=== PATIENT | female | born 1935 | race Caucasian/White ===

== ENCOUNTER → 2017-11-28 | Outpatient (CLI) | payer MEDICARE ==
[~2017-11-28] MED LIST: ACET-2743 PO; CARV25TA PO; FISH1CAP27 PO; GARL1000 PO; GLUC-56 PO; LEVO50 PO; LORA10CA PO; LOSA1TAB42 PO; NAPR220T57 PO; NIAC500C3 PO; PANT40TA25 PO
== END | disposition home or self-care (01) ==
LOC: RAH 13:27
PROVIDERS: ATTEND Neuromusculoskeletal Medicine & OMM
DX: S32.010A Wedge compression fracture of first lumbar vertebra, initial encounter for closed fracture (principal); M43.16 Spondylolisthesis, lumbar region; M47.894 Other spondylosis, thoracic region; M41.85 Other forms of scoliosis, thoracolumbar region; X58.XXXA Exposure to other specified factors, initial encounter; Y93.89 Activity, other specified; Y92.89 Other specified places as the place of occurrence of the external cause; Y99.8 Other external cause status
CPT/HCPCS: 72070; 72114

== ENCOUNTER → 2018-12-10 | Outpatient (CLI) | payer MEDICARE | END | disposition home or self-care (01) | LOC: RAH 10:56 | PROVIDERS: ATTEND Internal Medicine Critical Care Medicine | DX: Z04.3 Encounter for examination and observation following other accident (principal); M47.815 Spondylosis without myelopathy or radiculopathy, thoracolumbar region; M47.813 Spondylosis without myelopathy or radiculopathy, cervicothoracic region; J84.9 Interstitial pulmonary disease, unspecified; J98.11 Atelectasis | CPT/HCPCS: 71046; 72070; 72100 ==

== ENCOUNTER → 2019-04-05 | Outpatient (CLI) | payer MEDICARE ==
[~2019-04-05] MED LIST changes: +AMIL5TAB8 PO; +CETI10CA5 PO; +CHOL400T33 PO; +GABA-529 PO; -GARL1000 PO; -GLUC-56 PO; +HYDR12.530 PO; -LOSA1TAB42 PO; +LOSA50TA64 PO; +UBID1CAP56 PO
== END | disposition home or self-care (01) ==
LOC: RAH 10:17
PROVIDERS: ATTEND Urology
DX: N20.0 Calculus of kidney (principal); G95.29 Other cord compression; Z90.49 Acquired absence of other specified parts of digestive tract
CPT/HCPCS: 74018; 76100

== ENCOUNTER 2019-04-10 00:37 | Emergency (ER) | payer MEDICARE ==
[2019-04-10 01:13] LABS: APPEARANCE,URINE Clear (CLEAR); BILIRUBIN,URINE Negative (NEGATIVE); COLOR,URINE Yellow (YELLOW); GLUCOSE, URINE (UA) Negative (NEGATIVE); KETONES,URINE Negative (NEGATIVE); LEUKOCYTE ESTERASE ,URINE Small (NEGATIVE); NITRATE,URINE Negative (NEGATIVE); OCCULT BLOOD,URINE Small (NEGATIVE); PROTEIN,URINE Negative (NEGATIVE)
[2019-04-10 01:19] LABS: BACTERIA,URINE Rare /HPF (None Seen); RBC,URINE 0-1 /HPF (0-1); SQUAMOUS EPITHELIAL CELL,UR Moderate /HPF (0-2); WBC,URINE 0-1 /HPF (0-1)
[2019-04-10] MEDS ORDERED: ONDANSETRON HCL 4 MG/2 ML VIAL ONE (01:34)
[2019-04-10] MEDS ORDERED: KETOROLAC TROMETHAMINE 15MG/ML ONE (01:34)
[2019-04-10] MEDS ORDERED: SODIUM CHLORIDE 0.9% 500ML 500 ML IV ONE (01:35)
[2019-04-10 01:42] LABS: BASOPHILS % (AUTO) 4.3 % (0.0-5.0); EOSINOPHILS % (AUTO) 4.7 % (0.0-8.0); HEMATOCRIT 34.2 % (36-48); LYMPHOCYTES % (AUTO) 12.6 % (21.0-51.0); MEAN CORPUSCULAR HGB CONC 33.7 g/dL (32.0-36.0); MEAN CORPUSCULAR VOLUME 88.8 fL (79-99); MONOCYTES % (AUTO) 6.8 % (3.0-13.0); NEUTROPHILS % (AUTO) 71.6 % (40.0-77.0); PLATELET COUNT (AUTO) 328 K/uL (130-400); RED BLOOD CELL COUNT(AUTO) 3.85 MIL/uL (4.00-5.50); RED CELL DISTRIBUTION WIDTH 14.7 % (11.0-15.5); WHITE BLOOD COUNT (AUTO) 7.1 K/uL (4.8-10.8)
[2019-04-10 01:53] LABS: POTASSIUM 4.3 mmol/L (3.5-5.1)
[2019-04-10 01:55] LABS: INR 1.05 (0.85-1.15); PARTIAL THROMBOPLASTIN TIME 25.5 SEC (26.3-35.5)
[2019-04-10 02:02] LABS: ALBUMIN 3.2 g/dL (3.5-5.0); BILIRUBIN,DIRECT 0.1 mg/dL (0.0-0.3); BILIRUBIN,TOTAL 0.3 mg/dL (0.2-1.0); TOTAL PROTEIN, SERUM 7.7 g/dL (6.0-8.3)
== END 2019-04-10 04:14 | disposition home or self-care (01) ==
LOC: EDH 00:37
DX: N13.30 Unspecified hydronephrosis (principal); E78.5 Hyperlipidemia, unspecified; I10 Essential (primary) hypertension; E07.9 Disorder of thyroid, unspecified; Z88.5 Allergy status to narcotic agent; Z88.6 Allergy status to analgesic agent; Z90.49 Acquired absence of other specified parts of digestive tract; Z98.890 Other specified postprocedural states; Z90.710 Acquired absence of both cervix and uterus
CPT/HCPCS: 36415; 74176; 80048; 80076; 81001; 82550; 83690; 84484; 85025; 85610; 85730; 93005; 96374; 96375; 99285; J1885; J2405; J7040

== ENCOUNTER → 2019-04-12 | Outpatient (CLI) | payer MEDICARE ==
[2019-04-12 12:13] LABS: CREATININE 0.9 mg/dL (0.5-1.5); POTASSIUM 4.5 mmol/L (3.5-5.1)
[2019-04-12 12:34] LABS: BASOPHILS % (AUTO) 0.5 % (0.0-5.0); EOSINOPHILS % (AUTO) 4.1 % (0.0-8.0); HEMATOCRIT 35.5 % (36-48); LYMPHOCYTES % (AUTO) 28.1 % (21.0-51.0); MEAN CORPUSCULAR HEMOGLOBIN 30.4 pg (27.0-33.0); MEAN CORPUSCULAR HGB CONC 33.8 g/dL (32.0-36.0); MEAN CORPUSCULAR VOLUME 90.1 fL (79-99); MONOCYTES % (AUTO) 7.4 % (3.0-13.0); NEUTROPHILS % (AUTO) 59.9 % (40.0-77.0); PLATELET COUNT (AUTO) 319 K/uL (130-400); RED BLOOD CELL COUNT(AUTO) 3.94 MIL/uL (4.00-5.50); RED CELL DISTRIBUTION WIDTH 14.5 % (11.0-15.5); WHITE BLOOD COUNT (AUTO) 6.1 K/uL (4.8-10.8)
== END | disposition home or self-care (01) ==
LOC: LAB 11:02
PROVIDERS: ATTEND Urology
DX: N20.0 Calculus of kidney (principal); N13.30 Unspecified hydronephrosis
CPT/HCPCS: 36415; 36591; 80048; 85025

== ENCOUNTER → 2019-04-17 | Outpatient (CLI) | payer MEDICARE ==
[~2019-04-17] MED LIST changes: +IOHEXOL 350 MG/ML 100ML INFUS..BTL IV ONE
== END | disposition home or self-care (01) ==
LOC: RAH 09:49
PROVIDERS: ATTEND Urology
DX: N13.30 Unspecified hydronephrosis (principal); N20.0 Calculus of kidney; M85.88 Other specified disorders of bone density and structure, other site; M48.56XA Collapsed vertebra, not elsewhere classified, lumbar region, initial encounter for fracture; N32.89 Other specified disorders of bladder
CPT/HCPCS: 74400; Q9967

== ENCOUNTER 2019-05-19 15:16 | Inpatient (IN) | payer MEDICARE ==
[~2019-05-19] VITALS: Ht 170.2 cm; Wt 88.1 kg
[~2019-05-19 15:16] MED LIST changes: -IOHEXOL 350 MG/ML 100ML INFUS..BTL IV ONE
[2019-05-19 15:41] LABS: BASOPHILS % (AUTO) 0.1 % (0.0-5.0); EOSINOPHILS % (AUTO) 0.3 % (0.0-8.0); HEMATOCRIT 37.7 % (36-48); LYMPHOCYTES % (AUTO) 6.4 % (21.0-51.0); MEAN CORPUSCULAR HEMOGLOBIN 29.7 pg (27.0-33.0); MEAN CORPUSCULAR HGB CONC 33.7 g/dL (32.0-36.0); MEAN CORPUSCULAR VOLUME 88.2 fL (79-99); MONOCYTES % (AUTO) 3.3 % (3.0-13.0); NEUTROPHILS % (AUTO) 89.9 % (40.0-77.0); NUCLEATED RED BLOOD CELLS 0.1 % (0.0-0.19); PLATELET COUNT (AUTO) 270 K/uL (130-400); RED BLOOD CELL COUNT(AUTO) 4.27 MIL/uL (4.00-5.50); RED CELL DISTRIBUTION WIDTH 13.8 % (11.0-15.5); WHITE BLOOD COUNT (AUTO) 12.2 K/uL (4.8-10.8)
[2019-05-19 15:49] LABS: CARBON DIOXIDE 25 mmol/L (21-32); CHLORIDE 97 mmol/L (101-111); CREATININE 1.4 mg/dL (0.5-1.5); GLOMERULAR FILTR. RATE CALC 38 mL/min (>60); GLUCOSE,RANDOM 112 mg/dL (70-105); POTASSIUM 4.3 mmol/L (3.5-5.1); SODIUM SERUM 133 mmol/L (136-145); UREA NITROGEN, BLOOD 27 mg/dL (7-18)
[2019-05-19 15:51] LABS: INR 1.06 (0.85-1.15); PARTIAL THROMBOPLASTIN TIME 28.4 SEC (26.3-35.5); PROTHROMBIN TIME 11.1 SEC (9.6-11.6)
[2019-05-19] MEDS ORDERED: SODIUM CHLORIDE 0.9% 1000ML 2,000 ML IV ONE (15:54)
[2019-05-19] MEDS ORDERED: ONDANSETRON HCL 4 MG/2 ML VIAL ONE (15:54)
[2019-05-19 16:01] LABS: ALANINE AMINOTRANSFERASE 16 U/L (12-78); ALBUMIN 3.5 g/dL (3.5-5.0); ASPARTATE AMINOTRANSFERASE 16 U/L (10-37); BILIRUBIN,TOTAL 0.5 mg/dL (0.2-1.0); CREATINE KINASE, TOTAL 30 U/L (21-232); MYOGLOBIN 107 ng/mL (10-92); TOTAL PROTEIN, SERUM 7.9 g/dL (6.0-8.3); TROPONIN I < 0.04 ng/mL (0.00-0.06)
[2019-05-19 16:29] LABS: APPEARANCE,URINE Turbid (CLEAR); BILIRUBIN,URINE Negative (NEGATIVE); COLOR,URINE Yellow (YELLOW); GLUCOSE, URINE (UA) Negative (NEGATIVE); KETONES,URINE Trace mg/dL (NEGATIVE); LEUKOCYTE ESTERASE ,URINE Moderate (NEGATIVE); NITRATE,URINE Negative (NEGATIVE); OCCULT BLOOD,URINE Large (NEGATIVE); PH,URINE 5.5 (5.0-8.0); PROTEIN,URINE Negative (NEGATIVE)
[2019-05-19 16:49] LABS: BACTERIA,URINE Few /HPF (None Seen); RBC,URINE 51-100 /HPF (0-1)
[2019-05-19 16:50] LABS: SQUAMOUS EPITHELIAL CELL,UR 0-2 /HPF (0-2); TRANSITIONAL EPI CELLS,URINE Few /HPF (None Seen)
[2019-05-19] MEDS ORDERED: ONDANSETRON HCL 4 MG/2 ML VIAL IV PRN (21:15)
[2019-05-19] MEDS ORDERED: ACETAMINOPHEN 325 MG TAB PO PRN ×2 (21:15)
[2019-05-19] MEDS ORDERED: SODIUM CHLORIDE 0.9% 1000ML 1,000 ML IV ONE (22:22)
[2019-05-20 00:45] VITALS: BP 110/62
[2019-05-20 03:49] VITALS: BP 120/64
[2019-05-20 08:00] VITALS: BP 109/55
[2019-05-20] MEDS ORDERED: ENOXAPARIN SODIUM 30 MG/0.3 ML SQ SCH (09:00)
[2019-05-20] MEDS: SODIUM CHLORIDE 0.9% 1000ML 1,000 ML IV SCH ×3 (09:43→21:23)
[2019-05-20] MEDS: FAMOTIDINE/PF 20 MG/2 ML VIAL IV SCH ×2 (09:43→21:22)
[2019-05-20 11:00] VITALS: BP 126/65
[2019-05-20] MEDS: METRONIDAZOLE 500MG/100ML BAG 100 ML IV SCH ×2 (13:29→21:22)
[2019-05-20] MEDS: CEFTRIAXONE SODIUM 1 GM IVP SCH (13:29)
--- NOTE | 2019-05-20 15:22 | NUR ---
DCP CM met with pt discussed dc plans. Pt is independent prior to admission, lives at home with daughter. Pt has a shower chair and cane. Denies any other equipments/services. Pt feels safe to go back home, still drives, daughter able to assist with transportation and needs. DC plan to home once stable. CM to cont to follow up. Addendum: 05/20/19 at 1523 by LEAH MASON LVN CM Amended: Links added.
[2019-05-20 16:00] VITALS: BP 111/58
[2019-05-20 19:35] VITALS: BP 107/63
[2019-05-20] MEDS: CARVEDILOL 25 MG TABLET PO SCH (21:22)
[2019-05-21 00:20] VITALS: BP 97/51
[2019-05-21 03:40] VITALS: BP 100/52
[2019-05-21 04:50] LABS: HEMATOCRIT 31.9 % (36-48); MEAN CORPUSCULAR HEMOGLOBIN 29.7 pg (27.0-33.0); MEAN CORPUSCULAR HGB CONC 33.2 g/dL (32.0-36.0); MEAN CORPUSCULAR VOLUME 89.6 fL (79-99); PLATELET COUNT (AUTO) 224 K/uL (130-400); RED BLOOD CELL COUNT(AUTO) 3.56 MIL/uL (4.00-5.50); RED CELL DISTRIBUTION WIDTH 13.9 % (11.0-15.5); WHITE BLOOD COUNT (AUTO) 16.3 K/uL (4.8-10.8)
[2019-05-21] MEDS ORDERED: LEVOTHYROXINE 50 MCG TABLET ONE (05:08)
[2019-05-21 05:11] LABS: CREATININE 1.2 mg/dL (0.5-1.5); POTASSIUM 3.1 mmol/L (3.5-5.1)
[2019-05-21] MEDS: LEVOTHYROXINE 50 MCG TABLET PO SCH (05:11)
[2019-05-21] MEDS: METRONIDAZOLE 500MG/100ML BAG 100 ML IV SCH ×2 (05:11→14:43)
[2019-05-21 08:00] VITALS: BP 111/78
[2019-05-21] MEDS ORDERED: HYDROCHLOROTHIAZIDE 25 MG TABLET PO SCH (09:00)
[2019-05-21] MEDS: CO Q10 100 MG PO SCH (09:00)
[2019-05-21] MEDS ORDERED: POTASSIUM CHLORIDE 20 MEQ ERTAB PO SCH (10:15)
[2019-05-21 11:00] VITALS: BP 125/94
[2019-05-21] MEDS: CEFTRIAXONE SODIUM 1 GM IVP SCH (11:46)
[2019-05-21] MEDS: AMILORIDE HCL 5 MG TABLET PO SCH (11:46)
[2019-05-21] MEDS: CARVEDILOL 25 MG TABLET PO SCH ×2 (11:46→20:56)
[2019-05-21] MEDS: FAMOTIDINE/PF 20 MG/2 ML VIAL IV SCH ×2 (11:47→20:56)
[2019-05-21] MEDS: ENOXAPARIN SODIUM 30 MG/0.3 ML SQ SCH (11:48)
[2019-05-21] MEDS ORDERED: PHARMACY COMMUNICATION MISC SCH (14:30)
[2019-05-21] MEDS: SODIUM CHLORIDE 0.9% 1000ML 1,000 ML IV SCH (14:45)
[2019-05-21] MEDS ORDERED: COMPOUND PO MISCELLANEOUS 1 EACH MISC MISC PRN (15:00)
[2019-05-21 16:00] VITALS: BP 115/77
[2019-05-21] MEDS ORDERED: METRONIDAZOLE 500 MG TABLET PO SCH (16:00)
[2019-05-21] MEDS ORDERED: VANCOMYCIN 250MG/5ML ORAL SOLUTION 40ML PO ONE ×2 (16:00)
[2019-05-21] MEDS: VANCOMYCIN 250MG/5ML ORAL SOLUTION 40ML PO SCH ×4 (18:21→23:46)
[2019-05-21] MEDS: LACTOBACILLUS RHAMNOSUS GG 1 EACH CAP.SPRINK PO SCH (20:55)
[2019-05-21] MEDS: POTASSIUM CHLORIDE 20 MEQ ERTAB PO SCH (20:56)
[2019-05-22] VITALS: BP_SYST 124; BP_DIAS 55; BP_DIAS 85
[2019-05-22 04:00] VITALS: BP 151/99
--- NOTE | 2019-05-22 05:39 | NUR ---
A-FIB W RVR Pt complained of feeling palpitations, pt denies dizzyness. Irregular and fast heart beat heard upon auscultation of heart sounds. 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 Cardiac enzymes and mg ordered. Orders to consult cardiology in a.m
[2019-05-22] MEDS: LEVOTHYROXINE 50 MCG TABLET PO SCH (05:51)
[2019-05-22] MEDS: VANCOMYCIN 250MG/5ML ORAL SOLUTION 40ML PO SCH ×8 (05:52→23:38)
[2019-05-22 06:11] LABS: HEMATOCRIT 38.6 % (36-48); MEAN CORPUSCULAR HEMOGLOBIN 29.5 pg (27.0-33.0); MEAN CORPUSCULAR VOLUME 89.2 fL (79-99); PLATELET COUNT (AUTO) 314 K/uL (130-400); RED BLOOD CELL COUNT(AUTO) 4.33 MIL/uL (4.00-5.50); RED CELL DISTRIBUTION WIDTH 13.9 % (11.0-15.5); WHITE BLOOD COUNT (AUTO) 11.3 K/uL (4.8-10.8)
[2019-05-22 06:14] LABS: CARBON DIOXIDE 21 mmol/L (21-32); CHLORIDE 104 mmol/L (101-111); GLOMERULAR FILTR. RATE CALC 57 mL/min (>60); GLUCOSE,RANDOM 113 mg/dL (70-105); SODIUM SERUM 137 mmol/L (136-145); UREA NITROGEN, BLOOD 11 mg/dL (7-18)
[2019-05-22 06:27] LABS: CREATINE KINASE, TOTAL 35 U/L (21-232); MYOGLOBIN 62 ng/mL (10-92); TROPONIN I < 0.04 ng/mL (0.00-0.06)
[2019-05-22 07:30] VITALS: BP 140/74
[2019-05-22] MEDS: CO Q10 100 MG PO SCH (09:00)
[2019-05-22] MEDS: LACTOBACILLUS RHAMNOSUS GG 1 EACH CAP.SPRINK PO SCH ×3 (10:24→19:46)
[2019-05-22] MEDS: ENOXAPARIN SODIUM 30 MG/0.3 ML SQ SCH (10:25)
[2019-05-22] MEDS: CARVEDILOL 25 MG TABLET PO SCH ×2 (10:26→19:48)
[2019-05-22] MEDS: FAMOTIDINE/PF 20 MG/2 ML VIAL IV SCH ×2 (10:26→19:45)
[2019-05-22] MEDS: POTASSIUM CHLORIDE 20 MEQ ERTAB PO SCH ×2 (10:29→19:46)
[2019-05-22] MEDS: AMILORIDE HCL 5 MG TABLET PO SCH (10:30)
[2019-05-22] MEDS: CEFTRIAXONE SODIUM 1 GM IVP SCH (10:34)
[2019-05-22 11:00] VITALS: BP 135/99
[2019-05-22] MEDS: SODIUM CHLORIDE 0.9% 1000ML 1,000 ML IV SCH (15:15)
[2019-05-22 16:00] VITALS: BP 143/86
[2019-05-22] MEDS ORDERED: MAGNESIUM 2GM PREMIX 50ML 50 ML IV PRN (16:15)
[2019-05-22 20:00] VITALS: BP 151/93
[2019-05-23] VITALS: BP 109/73
[2019-05-23 04:00] VITALS: BP 137/92
[2019-05-23] MEDS: LEVOTHYROXINE 50 MCG TABLET PO SCH (05:17)
[2019-05-23 05:43] LABS: HEMATOCRIT 34.3 % (36-48); MEAN CORPUSCULAR HEMOGLOBIN 29.9 pg (27.0-33.0); MEAN CORPUSCULAR HGB CONC 33.8 g/dL (32.0-36.0); MEAN CORPUSCULAR VOLUME 88.3 fL (79-99); NUCLEATED RED BLOOD CELLS 0.1 % (0.0-0.19); PLATELET COUNT (AUTO) 306 K/uL (130-400); RED BLOOD CELL COUNT(AUTO) 3.88 MIL/uL (4.00-5.50); RED CELL DISTRIBUTION WIDTH 13.8 % (11.0-15.5); WHITE BLOOD COUNT (AUTO) 5.6 K/uL (4.8-10.8)
[2019-05-23 05:55] LABS: CREATININE 0.9 mg/dL (0.5-1.5); MAGNESIUM 1.8 mg/dL (1.80-2.40); POTASSIUM 3.8 mmol/L (3.5-5.1)
[2019-05-23] MEDS: VANCOMYCIN 250MG/5ML ORAL SOLUTION 40ML PO SCH ×8 (06:16→23:19)
[2019-05-23 08:00] VITALS: BP_SYST 140; BP_SYST 143; BP_DIAS 70; BP_DIAS 82
[2019-05-23] MEDS: CO Q10 100 MG PO SCH (09:00)
[2019-05-23] MEDS: FAMOTIDINE/PF 20 MG/2 ML VIAL IV SCH ×2 (09:00→19:24)
[2019-05-23] MEDS: LACTOBACILLUS RHAMNOSUS GG 1 EACH CAP.SPRINK PO SCH ×3 (09:54→19:24)
[2019-05-23] MEDS: CEFTRIAXONE SODIUM 1 GM IVP SCH (09:55)
[2019-05-23] MEDS: POTASSIUM CHLORIDE 20 MEQ ERTAB PO SCH ×2 (09:55→19:24)
[2019-05-23] MEDS: AMILORIDE HCL 5 MG TABLET PO SCH (09:56)
[2019-05-23] MEDS: ENOXAPARIN SODIUM 30 MG/0.3 ML SQ SCH (09:57)
[2019-05-23] MEDS: CARVEDILOL 25 MG TABLET PO SCH ×2 (10:20→19:25)
[2019-05-23] MEDS: SODIUM CHLORIDE 0.9% 1000ML 1,000 ML IV SCH (10:21)
[2019-05-23 11:50] VITALS: BP 114/86
[2019-05-23 16:00] VITALS: BP 120/66
[2019-05-23 20:00] VITALS: BP 154/95
[2019-05-24] VITALS (7 sets, daily range): BP systolic 113–136; BP diastolic 53–90
[2019-05-24 05:05] LABS: HEMATOCRIT 34.5 % (36-48); MEAN CORPUSCULAR HEMOGLOBIN 29.9 pg (27.0-33.0); MEAN CORPUSCULAR VOLUME 88.1 fL (79-99); NUCLEATED RED BLOOD CELLS 0.1 % (0.0-0.19); PLATELET COUNT (AUTO) 288 K/uL (130-400); RED BLOOD CELL COUNT(AUTO) 3.91 MIL/uL (4.00-5.50); RED CELL DISTRIBUTION WIDTH 14.2 % (11.0-15.5); WHITE BLOOD COUNT (AUTO) 5.5 K/uL (4.8-10.8)
[2019-05-24] MEDS: LEVOTHYROXINE 50 MCG TABLET PO SCH (05:09)
[2019-05-24 05:12] LABS: CREATININE 0.8 mg/dL (0.5-1.5); POTASSIUM 4.2 mmol/L (3.5-5.1)
[2019-05-24] MEDS: VANCOMYCIN 250MG/5ML ORAL SOLUTION 40ML PO SCH ×8 (05:52→22:53)
[2019-05-24] MEDS: FAMOTIDINE/PF 20 MG/2 ML VIAL IV SCH ×2 (09:00→19:41)
[2019-05-24] MEDS: LACTOBACILLUS RHAMNOSUS GG 1 EACH CAP.SPRINK PO SCH ×3 (09:00→19:44)
[2019-05-24] MEDS: CO Q10 100 MG PO SCH (09:00)
--- NOTE | 2019-05-24 09:30 | NUR ---
DR. VEGA HERE ,AND UPDATE PT MEDICATIONS AND ALSO SPOKE WITH PT . REGARDING MONITORING HER CHANGES OF MEDICATIONS . AND REACTIONS TO CHANGES . PT . AWARE OF ORDERS ON HER MEDICATIONS CHANGES .DENIES ANY CHEST PAIN. PT IS ON A TELE MONITOR . CALL LIGHT IN REACH..
[2019-05-24] MEDS: AMILORIDE HCL 5 MG TABLET PO SCH (11:34)
[2019-05-24] MEDS: CEFTRIAXONE SODIUM 1 GM IVP SCH (11:34)
[2019-05-24] MEDS: ENOXAPARIN SODIUM 30 MG/0.3 ML SQ SCH (11:34)
[2019-05-24] MEDS: POTASSIUM CHLORIDE 20 MEQ ERTAB PO SCH ×2 (11:34→19:40)
[2019-05-24] MEDS: METOPROLOL TARTRATE 25 MG TAB PO SCH (19:40)
[2019-05-24] MEDS: CARVEDILOL 25 MG TABLET PO SCH (19:41)
[2019-05-25 03:40] VITALS: BP 111/66
[2019-05-25 03:45] VITALS: BP 111/66
[2019-05-25 04:44] LABS: HEMATOCRIT 36.1 % (36-48); MEAN CORPUSCULAR HEMOGLOBIN 29.6 pg (27.0-33.0); MEAN CORPUSCULAR HGB CONC 33.6 g/dL (32.0-36.0); MEAN CORPUSCULAR VOLUME 88.1 fL (79-99); NUCLEATED RED BLOOD CELLS 0.1 % (0.0-0.19); PLATELET COUNT (AUTO) 330 K/uL (130-400); WHITE BLOOD COUNT (AUTO) 6.1 K/uL (4.8-10.8)
[2019-05-25] MEDS: LEVOTHYROXINE 50 MCG TABLET PO SCH (04:58)
[2019-05-25] MEDS: VANCOMYCIN 250MG/5ML ORAL SOLUTION 40ML PO SCH ×2 (04:59)
[2019-05-25 05:01] LABS: POTASSIUM 4.3 mmol/L (3.5-5.1)
[2019-05-25 08:00] VITALS: BP 136/72
[2019-05-25] MEDS: CO Q10 100 MG PO SCH (09:00)
[2019-05-25] MEDS: FAMOTIDINE/PF 20 MG/2 ML VIAL IV SCH (09:57)
[2019-05-25] MEDS: CARVEDILOL 25 MG TABLET PO SCH (09:58)
[2019-05-25] MEDS: LACTOBACILLUS RHAMNOSUS GG 1 EACH CAP.SPRINK PO SCH (09:58)
[2019-05-25] MEDS: POTASSIUM CHLORIDE 20 MEQ ERTAB PO SCH (09:59)
[2019-05-25] MEDS: METOPROLOL TARTRATE 25 MG TAB PO SCH (09:59)
[2019-05-25] MEDS: AMILORIDE HCL 5 MG TABLET PO SCH (10:00)
[2019-05-25] MEDS: CEFTRIAXONE SODIUM 1 GM IVP SCH (10:01)
[2019-05-25] MEDS: ENOXAPARIN SODIUM 30 MG/0.3 ML SQ SCH (10:01)
[2019-05-25 11:44] VITALS: BP 104/80
[2019-05-25] MEDS ORDERED: DILT-3 PO (12:09)
[2019-05-25] MEDS ORDERED: APIX5TAB PO (12:09)
--- NOTE | 2019-05-25 12:13 | NUR ---
Nutrition Intervention: Nutrition screen based on LOS x 6 days. Pt. admitted with Dx of Acute Gastroenteritis, Chronic UTI. Pt. on Heart Healthy diet with good p.o. intake, as per pt. Labs reviewed(Alb 3.5). LBM: 05/24/19. SR-19, elastic. BMI: 30.4, overweight for age. Recommendations: 1) Continue current diet. 2) Continue to monitor pt's nutritional status. 3) Consult RD as nutrition concerns arise.
[2019-05-25] MEDS ORDERED: VANCO250PO PO (13:15)
--- NOTE | 2019-05-25 15:00 | NUR ---
DISCHARGE PATIENT GIVEN DISCHARGE INSTRUCTIONS VIA TEACH BACK. 20G PIV TO RIGHT HAND DISCONTINUED, TIP INTACT. RX GIVEN. PATIENT TO FOLLOW UP WITH PCP AND DR. VEGA. PATIENT STABLE AT THIS TIME. PATIENT WHEELED DOWN STAIRS BY JOSEPH CARRANZA.
[2019-05-26] MEDS ORDERED: APIXABAN 5 MG TABLET PO SCH (09:00)
[2019-05-26] MEDS ORDERED: DILTIAZEM HCL 180 MG CAP.SR.24H PO SCH (09:00)
== END 2019-05-25 14:50 | disposition home or self-care (01) | DRG 872 ==
LOC: EDH 15:16 → EDHIP 20:30 → 4CH 05-20 00:17
PROVIDERS: ADMIT Hospitalist; ATTEND Hospitalist
DX: A41.9 Sepsis, unspecified organism (principal); N39.0 Urinary tract infection, site not specified; A04.72 Enterocolitis due to Clostridium difficile, not specified as recurrent; A09 Infectious gastroenteritis and colitis, unspecified; N20.0 Calculus of kidney; E87.6 Hypokalemia; E83.42 Hypomagnesemia; E03.9 Hypothyroidism, unspecified; E78.5 Hyperlipidemia, unspecified; I10 Essential (primary) hypertension; I48.0 Paroxysmal atrial fibrillation; K21.9 Gastro-esophageal reflux disease without esophagitis; Z96.653 Presence of artificial knee joint, bilateral; Z83.3 Family history of diabetes mellitus; Z82.0 Family history of epilepsy and other diseases of the nervous system; Z82.3 Family history of stroke; Z82.49 Family history of ischemic heart disease and other diseases of the circulatory system; Z82.5 Family history of asthma and other chronic lower respiratory diseases; Z87.442 Personal history of urinary calculi; Z90.710 Acquired absence of both cervix and uterus; Z90.49 Acquired absence of other specified parts of digestive tract; Z88.5 Allergy status to narcotic agent; Z88.8 Allergy status to other drugs, medicaments and biological substances
CPT/HCPCS: 36415; 71045; 80048; 80053; 81001; 82550; 83605; 83630; 83735; 83874; 84484; 85025; 85027; 85610; 85730; 87040; 87046; 87077; 87088; 87186; 87324; 93005; 97039; G0378; J0696; J1650; J2405; J3370; J3475; J3490; J7030

== ENCOUNTER 2019-06-04 10:18 | Day surgery (SDC) | payer MEDICARE ==
[2019-05-31 11:22] LABS: MEAN CORPUSCULAR HGB CONC 32.7 g/dL (32.0-36.0); MEAN CORPUSCULAR VOLUME 88.6 fL (79-99); NUCLEATED RED BLOOD CELLS 0.1 % (0.0-0.19); PLATELET COUNT (AUTO) 345 K/uL (130-400); RED BLOOD CELL COUNT(AUTO) 4.63 MIL/uL (4.00-5.50); RED CELL DISTRIBUTION WIDTH 14.2 % (11.0-15.5); WHITE BLOOD COUNT (AUTO) 6.7 K/uL (4.8-10.8)
[2019-05-31 11:34] VITALS: BP 177/94
[2019-05-31 11:39] LABS: INR 1.09 (0.85-1.15); PROTHROMBIN TIME 11.4 SEC (9.6-11.6)
[2019-05-31 11:46] LABS: APPEARANCE,URINE Clear (CLEAR); BILIRUBIN,URINE Negative (NEGATIVE); COLOR,URINE Yellow (YELLOW); GLUCOSE, URINE (UA) Negative (NEGATIVE); KETONES,URINE Negative (NEGATIVE); LEUKOCYTE ESTERASE ,URINE Small (NEGATIVE); NITRATE,URINE Negative (NEGATIVE); OCCULT BLOOD,URINE Negative (NEGATIVE); PH,URINE 6.5 (5.0-8.0); PROTEIN,URINE Negative (NEGATIVE); UROBILINOGEN,URINE 0.2 mg/dL (0.2-1.0)
[2019-05-31 11:53] LABS: BACTERIA,URINE Rare /HPF (None Seen); RBC,URINE 0-1 /HPF (0-1); SQUAMOUS EPITHELIAL CELL,UR Rare /HPF (0-2); WBC,URINE 0-1 /HPF (0-1)
[2019-05-31 11:57] LABS: POTASSIUM 4.3 mmol/L (3.5-5.1)
--- NOTE | 2019-06-03 16:15 | NUR ---
CALLED DOCTOR FRANK OFFICE AND SPOKE TO ROSAS IN REGARDS TO PATIENT REPORTING THAT SHE WAS HOSPITALIST FOR CDIFF AND WAS RELEASE ON MAY 25, 2019 AND STARTED VANCO ON MAY 28, 2019 PER MD NO NEW ORDERS. SEND UA RESULTS OF NEGATIVE RODS AND LEUKEST , PENDING NEW ORDER AND FOR MD TO REVIEW. PER ROSAS SHE WILL PUT RESULTS IN CHART FOR MD TO REVIEW. PENDING ORDERS
--- NOTE | 2019-06-03 16:45 | NUR ---
NOTE CALL BACK RECEIVED FROM DR. VENEGAS'S OFFICE. PER DR. VENEGAS, CANCEL ANCEF. GIVE GENTAMICIN 160 MG IV FUNDRAISER TO OR.
[~2019-06-04] VITALS: Ht 165.1 cm; Wt 87.8 kg
[2019-06-04] VITALS (16 sets, daily range): BP systolic 128–157; BP diastolic 72–88
[~2019-06-04 10:18] MED LIST changes: -ACET-2743 PO; -AMIL5TAB8 PO; +APIX5TAB PO; -CARV25TA PO; +DILT-3 PO; -HYDR12.530 PO; -LORA10CA PO; -LOSA50TA64 PO; -NAPR220T57 PO; -UBID1CAP56 PO; +VANCO250PO PO
[2019-06-04] MEDS ORDERED: LACTATED RINGERS 1000ML 1,000 ML IV ONE (11:21)
[2019-06-04] MEDS: GENTAMICIN SULFATE 160 MG in SODIUM CHLORIDE 0.9% 100 ML IV SCH ×2 (12:02→14:02)
[2019-06-04] MEDS ORDERED: SUCCINYLCHOLINE 200MG/10ML SYR ONE (13:13)
[2019-06-04] MEDS ORDERED: LIDOCAINE PF 2% 5ML ABBOJECT ONE (13:13)
[2019-06-04] MEDS ORDERED: PROPOFOL 10 MG/ML 20ML VIAL IV ONE (13:14)
[2019-06-04] MEDS ORDERED: ROCURONIUM 10MG/1ML SYR 10 MG/ML ML ONE (13:14)
[2019-06-04] MEDS ORDERED: EPHEDRINE SULFATE 50 MG/ML AMPULE ONE (13:23)
[2019-06-04] MEDS ORDERED: ONDANSETRON HCL 4 MG/2 ML VIAL ONE (13:32)
[2019-06-04] MEDS ORDERED: GLYCOPYRROLATE 1 MG/5 ML SYRINGE ONE (13:57)
--- NOTE | 2019-06-04 16:25 | NUR ---
PT STABLE, AAOX3, NO C/O PAIN ON ARRIVAL TO DAY PT. ABLE TO DRINK WATER. POST CARE INSTRUCTIONS GIVEN TO DAUGHTER,.GIVEN SUPPLIES TO STRAIN ALL URINE AND TAKE RESIDUAL STONES IN A STERILE CONTAINER TO DR. VENEGAS'S OFFICE VISIT WHEN THEY FOLLOW UP. PT AND DAUGHTER VERBALIZED UNDERSTANDING. PRESCRIPTIONS GIVEN TO DAUGHTER. PT PLACED A WHEELCHAIR AND DRIVEN HOME BY FAMILY.
== END 2019-06-04 16:25 | disposition home or self-care (01) ==
LOC: DAH 10:18
PROVIDERS: ATTEND Urology
DX: N20.0 Calculus of kidney (principal); I10 Essential (primary) hypertension; E03.9 Hypothyroidism, unspecified; I48.91 Unspecified atrial fibrillation; K21.9 Gastro-esophageal reflux disease without esophagitis; Z90.49 Acquired absence of other specified parts of digestive tract; Z90.710 Acquired absence of both cervix and uterus; Z98.890 Other specified postprocedural states; Z79.899 Other long term (current) drug therapy; Z88.5 Allergy status to narcotic agent; Z88.8 Allergy status to other drugs, medicaments and biological substances; Z79.01 Long term (current) use of anticoagulants; Z83.3 Family history of diabetes mellitus; Z82.49 Family history of ischemic heart disease and other diseases of the circulatory system
CPT/HCPCS: 36415; 50590; 71046; 74018; 80048; 81001; 85027; 85610; 85730; 87077; 87088; 87186; 93005; A4600; J0330; J1580; J2001; J2405; J2704; J3490 ×2; J7120 ×2

== ENCOUNTER → 2019-07-10 | Outpatient (CLI) | payer MEDICARE | END | disposition home or self-care (01) | LOC: RAH 13:46 | PROVIDERS: ATTEND Urology | DX: N20.0 Calculus of kidney (principal); I87.8 Other specified disorders of veins; M48.56XA Collapsed vertebra, not elsewhere classified, lumbar region, initial encounter for fracture; M41.86 Other forms of scoliosis, lumbar region | CPT/HCPCS: 74018; 76100 ==

== ENCOUNTER 2019-08-27 06:33 | Day surgery (SDC) | payer MEDICARE ==
[2019-08-26 09:41] VITALS: BP 151/80
[2019-08-26 09:44] LABS: HEMATOCRIT 42.1 % (36-48); MEAN CORPUSCULAR HEMOGLOBIN 29.8 pg (27.0-33.0); MEAN CORPUSCULAR HGB CONC 33.6 g/dL (32.0-36.0); MEAN CORPUSCULAR VOLUME 88.9 fL (79-99); PLATELET COUNT (AUTO) 229 K/uL (130-400); RED BLOOD CELL COUNT(AUTO) 4.74 MIL/uL (4.00-5.50); WHITE BLOOD COUNT (AUTO) 6.8 K/uL (4.8-10.8)
[2019-08-26 09:52] LABS: POTASSIUM 4.5 mmol/L (3.5-5.1)
[2019-08-26 09:56] LABS: APPEARANCE,URINE Clear (CLEAR); BILIRUBIN,URINE Negative (NEGATIVE); COLOR,URINE Yellow (YELLOW); GLUCOSE, URINE (UA) Negative (NEGATIVE); KETONES,URINE Negative (NEGATIVE); LEUKOCYTE ESTERASE ,URINE Trace (NEGATIVE); NITRATE,URINE Negative (NEGATIVE); OCCULT BLOOD,URINE Negative (NEGATIVE); PH,URINE 7.5 (5.0-8.0); PROTEIN,URINE Negative (NEGATIVE); UROBILINOGEN,URINE 0.2 mg/dL (0.2-1.0)
[2019-08-26 09:57] LABS: INR 1.06 (0.85-1.15); PARTIAL THROMBOPLASTIN TIME 29.4 SEC (26.3-35.5); PROTHROMBIN TIME 11.1 SEC (9.6-11.6)
--- NOTE | 2019-08-26 10:00 | NUR ---
HOLTER MONITOR INFORMED DR. INGRAM PT BEGAN WEARING A HOLTER MONITOR LAST WEEK PER DR. VEGA TO EVALUATE. PER DR. INGRAM, INFORM DR. VEGA AND FOLLOW HIS RECOMMENDATIONS IN REGARDS TO MONITOR DAY OF PROCEDURE. CALLED AND SPOKE TO DR. GARCÍA ALEXANDER AND SHE WILL INFORM DR. VEGA AND CALL ME BACK WITH RECOMMENDATIONS.
[2019-08-26 10:24] LABS: BACTERIA,URINE None Seen /HPF (None Seen); RBC,URINE None Seen /HPF (0-1); SQUAMOUS EPITHELIAL CELL,UR 0-2 /HPF (0-2); WBC,URINE 0-1 /HPF (0-1)
--- NOTE | 2019-08-26 15:27 | NUR ---
RAFITA ALEXANDER, DR. MARIANO AST ON PHONE. PER DR. VEGA, PT TO REMOVE HOLTER MONITOR TOMORROW FOR PROCEDURE AND REAPPLY AFTER PT HOME. INFORMED DR. INGRAM OF DR. MARIANO RECOMMENDATION AND CLEARANCE NOTE FROM DR. VEGA. PROCEED WITH PLANNED PROCEDURE. INFORMED PT OF NOT WEARING HOLTER TOMORROW AND REAPPLYING AFTER HOME. VERBALIZED UNDERSTANDING.
[~2019-08-27] VITALS: Ht 163.8 cm; Wt 86.7 kg
[2019-08-27] VITALS (14 sets, daily range): BP systolic 113–135; BP diastolic 68–73
[2019-08-27] MEDS: CEFAZOLIN SODIUM 1 GM VIAL IVP SCH ×2 (05:00→10:02)
[~2019-08-27 06:33] MED LIST changes: +AMIL5TAB8 PO; +AMLO5TAB9 PO; +CARV25TA PO; -CETI10CA5 PO; +CHLO25TA3 PO; -DILT-3 PO; -VANCO250PO PO
[2019-08-27] MEDS ORDERED: LACTATED RINGERS 1000ML 1,000 ML IV ONE (07:31)
[2019-08-27] MEDS ORDERED: SUCCINYLCHOLINE 200MG/10ML SYR ONE (09:53)
[2019-08-27] MEDS ORDERED: NEOSTIGMINE 5MG/5ML SYR IV ONE (09:53)
[2019-08-27] MEDS ORDERED: ONDANSETRON HCL 4 MG/2 ML VIAL ONE (09:53)
[2019-08-27] MEDS ORDERED: GLYCOPYRROLATE 1 MG/5 ML SYRINGE ONE (09:53)
[2019-08-27] MEDS ORDERED: PROPOFOL 10 MG/ML 20ML VIAL IV ONE (09:53)
[2019-08-27] MEDS ORDERED: DEXAMETHASONE SOD PHOSPHATE 10MG/ML 1ML VIAL ONE (09:53)
[2019-08-27] MEDS ORDERED: LIDOCAINE PF 2% 5ML ABBOJECT ONE (09:53)
[2019-08-27] MEDS ORDERED: ROCURONIUM 10MG/1ML SYR 10 MG/ML ML ONE (09:54)
[2019-08-27] MEDS ORDERED: FENTANYL CITRATE PF 50 MCG/1 ML 2ML VIAL ONE (09:55)
[2019-08-27] MEDS ORDERED: EPHEDRINE SULFATE 50 MG/ML AMPULE ONE (10:10)
--- NOTE | 2019-08-27 12:00 | NUR ---
POST RECEIVED PATIENT FROM PACU,S/P RIGHT ESWL. PT AWAKE AND ALERT,NO DISTRESS NOTED. DENIES ANY PAIN OR DISCOMFORTS
--- NOTE | 2019-08-27 12:00 | NUR ---
POST PATIENT DENIED ANY PAIN OR DISCOMFORTS , VS STABLE
--- NOTE | 2019-08-27 12:15 | NUR ---
MED PAGED DR. VENEGAS TO CLARIFY WHEN PATIENT CAN RESUME ELIQUIS , PENDING CALL BACK INFORMED PATIENT NOT TILL RESUMED UNTIL WE CLARIFY WITH DR. VENEGAS. IF WE DONT GET CALL BEFORE SHE GOES HOME FOR PATIENT TO CALL HIS OFFICE THIS PM AND ASK DR. VENEGAS OR HIS NURSE . BOTH PATIENT/ SON VERBALIZED UNDERSTANDING.
--- NOTE | 2019-08-27 12:45 | NUR ---
DC PT DC HOME VIA WC, NO DISTRESS NOTED PT DENIED ANY PAIN OR DISCOMFORTS. STAINER GIVEN TO PATIENT. NO CALL RECEIVED BACK FROM DR. VENEGAS SO INFORMED PATIENT NOT TO RESUMED ELIQUS UNTIL DR. VENEGAS INSTRUCTS US. INFORMED HER TO CALL HIS OFFICE TO CLARIFY THIS PM IF HE DOESN'T RETURN MY CALL, BOTH SON AND PATIENT VERBALIZED UNDERSTANDING, OFFICE CLOSE.PATIENT ACCOMPANIED BY SON
--- NOTE | 2019-08-27 13:09 | NUR ---
MED CALLED PATIENT INFORM HER THAT DR. VENEGAS CALLED ME BACK TO RESUME ELIQUIS Monday08/30/19, PATIENT VERBALIZED UNDERSTANDING
== END 2019-08-27 12:45 | disposition home or self-care (01) ==
LOC: DAH 06:33
PROVIDERS: ATTEND Urology
DX: N20.0 Calculus of kidney (principal); I10 Essential (primary) hypertension; E03.9 Hypothyroidism, unspecified; K21.9 Gastro-esophageal reflux disease without esophagitis; Z79.899 Other long term (current) drug therapy; Z88.8 Allergy status to other drugs, medicaments and biological substances; Z88.5 Allergy status to narcotic agent; Z79.01 Long term (current) use of anticoagulants; Z98.890 Other specified postprocedural states; Z90.49 Acquired absence of other specified parts of digestive tract; Z90.710 Acquired absence of both cervix and uterus; Z82.49 Family history of ischemic heart disease and other diseases of the circulatory system; Z83.3 Family history of diabetes mellitus; Z82.3 Family history of stroke
CPT/HCPCS: 36415; 50590; 71046; 74018; 80048; 81001; 85027; 85610; 85730; 87077; 87088; 87186; 93005; A4215; A4221; A4222; A4223; A4600; A4663; J0330; J0690; J1100; J2001; J2405; J2704; J2710; J3010; J3490 ×2; J7120

== ENCOUNTER → 2019-09-11 | Outpatient (CLI) | payer MEDICARE | END | disposition home or self-care (01) | LOC: RAH 09:25 | PROVIDERS: ATTEND Urology | DX: K59.00 Constipation, unspecified (principal); N28.1 Cyst of kidney, acquired; I70.90 Unspecified atherosclerosis | CPT/HCPCS: 74018; 76100 ==

== ENCOUNTER → 2019-10-09 | Outpatient (CLI) | payer MEDICARE | END | disposition home or self-care (01) | LOC: RAH 09:40 | PROVIDERS: ATTEND Internal Medicine Cardiovascular Disease | DX: I48.0 Paroxysmal atrial fibrillation (principal); I11.9 Hypertensive heart disease without heart failure; E66.9 Obesity, unspecified | CPT/HCPCS: 93306 ==

== ENCOUNTER 2020-01-03 08:07 | Day surgery (SDC) | payer MEDICARE ==
[~2020-01-03] VITALS: Ht 167.6 cm; Wt 89.4 kg
[~2020-01-03 08:07] MED LIST changes: +LACT1CAP72 PO; +SODIUM CHLORIDE 0.9% 1000ML 1,000 ML IV ONE
[2020-01-03] MEDS ORDERED: APIX5TAB PO (09:52)
[2020-01-03 09:56] VITALS: BP 147/78
[2020-01-03] MEDS ORDERED: PROPOFOL 10 MG/ML 20ML VIAL IV ONE (11:31)
[2020-01-03 11:50] VITALS: BP 121/49
[2020-01-03 11:55] VITALS: BP 121/69
[2020-01-03 12:00] VITALS: BP 150/64
== END 2020-01-03 12:15 | disposition home or self-care (01) ==
LOC: DAH 08:07 → ENDO 08:07
PROVIDERS: ATTEND Internal Medicine
DX: R13.10 Dysphagia, unspecified (principal); K22.2 Esophageal obstruction; K29.50 Unspecified chronic gastritis without bleeding; K44.9 Diaphragmatic hernia without obstruction or gangrene; I10 Essential (primary) hypertension; K21.9 Gastro-esophageal reflux disease without esophagitis; E03.9 Hypothyroidism, unspecified; E78.00 Pure hypercholesterolemia, unspecified; Z88.5 Allergy status to narcotic agent; Z88.8 Allergy status to other drugs, medicaments and biological substances; Z79.82 Long term (current) use of aspirin; Z79.899 Other long term (current) drug therapy; Z90.49 Acquired absence of other specified parts of digestive tract; Z98.890 Other specified postprocedural states; Z90.710 Acquired absence of both cervix and uterus; Z98.49 Cataract extraction status, unspecified eye; Z79.01 Long term (current) use of anticoagulants; Z87.891 Personal history of nicotine dependence; Z82.49 Family history of ischemic heart disease and other diseases of the circulatory system; Z83.3 Family history of diabetes mellitus; Z82.3 Family history of stroke
CPT/HCPCS: 43239; 43248; 88305; 93005; A4215; A4221; A4222; A4223; A4606; A4615; A4663; J2704; J7030

== ENCOUNTER → 2020-05-18 | Outpatient (CLI) | payer MEDICARE ==
[~2020-05-18] MED LIST changes: +AMLO-257 PO; -AMLO5TAB9 PO; -PANT40TA25 PO; +PANT40TA54 PO; -SODIUM CHLORIDE 0.9% 1000ML 1,000 ML IV ONE
== END | disposition home or self-care (01) ==
LOC: RAH 11:51
PROVIDERS: ATTEND Internal Medicine Critical Care Medicine
DX: M47.817 Spondylosis without myelopathy or radiculopathy, lumbosacral region (principal); M47.815 Spondylosis without myelopathy or radiculopathy, thoracolumbar region; Z90.49 Acquired absence of other specified parts of digestive tract
CPT/HCPCS: 72100

== ENCOUNTER → 2023-02-20 | Outpatient (CLI) | payer MEDICARE ==
[~2023-02-20] MED LIST changes: +AMOX-426 PO; -LACT1CAP72 PO; +LACT1CAP81 PO; +MELO7.5T12 PO; +NIAC500C13 PO; -NIAC500C3 PO; +ORPH100T4 PO
[2023-02-20 12:27] LABS: BASOPHILS % (AUTO) 0.6 % (0.0-5.0); EOSINOPHILS % (AUTO) 5.3 % (0.0-8.0); HEMATOCRIT 32.1 % (36-48); MEAN CORPUSCULAR HEMOGLOBIN 24.7 pg (27.0-33.0); MEAN CORPUSCULAR HGB CONC 29.9 g/dL (32.0-36.0); MEAN CORPUSCULAR VOLUME 82.7 fL (79-99); NEUTROPHILS % (AUTO) 55.7 % (40.0-77.0); PLATELET COUNT (AUTO) 321 K/uL (130-400); RED BLOOD CELL COUNT(AUTO) 3.88 MIL/uL (4.00-5.50); RED CELL DISTRIBUTION WIDTH 15.3 % (11.0-15.5); WHITE BLOOD COUNT (AUTO) 6.8 K/uL (4.8-10.8)
[2023-02-20 12:50] LABS: % IRON SATURATION 3.1 % (22-44)
[2023-02-20 12:52] LABS: ALBUMIN 3.6 g/dL (3.5-5.0); CREATININE 1.1 mg/dL (0.5-1.5); TOTAL PROTEIN, SERUM 7.1 g/dL (6.0-8.3)
== END | disposition home or self-care (01) ==
LOC: LAB 08:40
PROVIDERS: ATTEND Internal Medicine Cardiovascular Disease
DX: I10 Essential (primary) hypertension (principal); I48.0 Paroxysmal atrial fibrillation; E78.00 Pure hypercholesterolemia, unspecified
CPT/HCPCS: 36415; 80053; 80061; 82728; 83540; 83550; 85025

== ENCOUNTER → 2023-11-16 | Outpatient (CLI) | payer MEDICARE ==
[~2023-11-16] MED LIST changes: -NIAC500C13 PO; +NIAC500C9 PO
[2023-11-16 12:38] LABS: BASOPHILS # (AUTO) 0.03 K/uL (0.00-0.20); BASOPHILS % (AUTO) 0.4 % (0.0-5.0); EOSINOPHILS # (AUTO) 0.24 K/uL (0.00-0.70); EOSINOPHILS % (AUTO) 3.2 % (0.0-8.0); IMMATURE GRANULOCYTE ABSOLUTE 0.03 K/uL (0-1); LYMPHOCYTES % (AUTO) 26.2 % (21.0-51.0); MEAN CORPUSCULAR HEMOGLOBIN 28.7 pg (27.0-33.0); MEAN CORPUSCULAR HGB CONC 31.3 g/dL (32.0-36.0); MONOCYTES # (AUTO) 0.5 K/uL (0.1-1.0); MONOCYTES % (AUTO) 6.8 % (3.0-13.0); NEUTROPHILS # (AUTO) 4.7 K/uL (1.8-7.7); PLATELET COUNT (AUTO) 264 K/uL (130-400); RED BLOOD CELL COUNT(AUTO) 4.35 MIL/uL (4.00-5.50); RED CELL DISTRIBUTION WIDTH 13.3 % (11.0-15.5); WHITE BLOOD COUNT (AUTO) 7.5 K/uL (4.8-10.8)
== END | disposition home or self-care (01) ==
LOC: LAB 10:01
PROVIDERS: ATTEND Internal Medicine Cardiovascular Disease
DX: I48.0 Paroxysmal atrial fibrillation (principal); D68.59 Other primary thrombophilia
CPT/HCPCS: 36415; 85025

== ENCOUNTER 2024-02-12 07:58 | Day surgery (SDC) | payer MEDICARE ==
[2024-02-08 10:57] LABS: BASOPHILS # (AUTO) 0.04 K/uL (0.00-0.20); BASOPHILS % (AUTO) 0.3 % (0.0-5.0); EOSINOPHILS # (AUTO) 0.17 K/uL (0.00-0.70); EOSINOPHILS % (AUTO) 1.4 % (0.0-8.0); HEMATOCRIT 40.4 % (36-48); IMMATURE GRANULOCYTE ABSOLUTE 0.15 K/uL (0-1); LYMPHOCYTES # (AUTO) 2.5 K/uL (1.0-4.8); LYMPHOCYTES % (AUTO) 20.3 % (21.0-51.0); MEAN CORPUSCULAR HEMOGLOBIN 30.2 pg (27.0-33.0); MEAN CORPUSCULAR HGB CONC 32.9 g/dL (32.0-36.0); MEAN CORPUSCULAR VOLUME 91.6 fL (79-99); MONOCYTES # (AUTO) 0.9 K/uL (0.1-1.0); MONOCYTES % (AUTO) 7.6 % (3.0-13.0); NEUTROPHILS # (AUTO) 8.4 K/uL (1.8-7.7); NEUTROPHILS % (AUTO) 69.2 % (40.0-77.0); PLATELET COUNT (AUTO) 304 K/uL (130-400); RED BLOOD CELL COUNT(AUTO) 4.41 MIL/uL (4.00-5.50); RED CELL DISTRIBUTION WIDTH 14.8 % (11.0-15.5); WHITE BLOOD COUNT (AUTO) 12.1 K/uL (4.8-10.8)
[2024-02-08 11:04] LABS: CREATININE 0.8 mg/dL (0.5-1.0); POTASSIUM 3.6 mmol/L (3.5-5.1)
[2024-02-08 11:22] VITALS: BP 137/77; PULSE 60; RESP 15
[2024-02-08 11:29] LABS: INR <= 0.93 (0.85-1.15)
[2024-02-08 11:31] LABS: PARTIAL THROMBOPLASTIN TIME 27.9 SEC (26.3-35.5)
[~2024-02-12] VITALS: Ht 165.1 cm; Wt 85.1 kg
[~2024-02-12 07:58] MED LIST changes: -AMIL5TAB8 PO; -AMOX-426 PO; -APIX5TAB PO; -CHLO25TA3 PO; +CYAN500T46 PO; +FERR-82 PO; -FISH1CAP27 PO; +FISH1CAP63 PO; +FLUT9.9S NS; -MELO7.5T12 PO; +MONT-39 PO; +NAPR-1023 PO; -ORPH100T4 PO; +TRAM50TA4 PO
[2024-02-12 08:45] VITALS: BP 139/79; PULSE 64; RESP 18
[2024-02-12] MEDS: 0.9%NACL 1000ML 1,000 ML IV ONE (11:44)
[2024-02-12] MEDS ORDERED: LIDOCAINE HCL 1% MDV 50ML VIAL ONE (12:50)
[2024-02-12] MEDS ORDERED: SODIUM BICARB 50MEQ 50ML VIAL 50 ML ONE (12:50)
[2024-02-12 13:21] VITALS: BP 162/91; PULSE 80; RESP 16
[2024-02-12 13:40] VITALS: BP 148/81; PULSE 66; RESP 17
== END 2024-02-12 13:40 | disposition home or self-care (01) ==
LOC: DAH 07:58
PROVIDERS: ATTEND Internal Medicine Cardiovascular Disease
DX: T82.598A Other mechanical complication of other cardiac and vascular devices and implants, initial encounter (principal); I10 Essential (primary) hypertension; E78.5 Hyperlipidemia, unspecified; D68.59 Other primary thrombophilia; I48.0 Paroxysmal atrial fibrillation; E03.9 Hypothyroidism, unspecified; Z90.49 Acquired absence of other specified parts of digestive tract; Z90.89 Acquired absence of other organs; Z98.890 Other specified postprocedural states; Z96.653 Presence of artificial knee joint, bilateral; Z82.49 Family history of ischemic heart disease and other diseases of the circulatory system; Z83.3 Family history of diabetes mellitus; Z82.0 Family history of epilepsy and other diseases of the nervous system; Z88.6 Allergy status to analgesic agent; Z88.8 Allergy status to other drugs, medicaments and biological substances; Z79.01 Long term (current) use of anticoagulants; Y83.8 Other surgical procedures as the cause of abnormal reaction of the patient, or of later complication, without mention of misadventure at the time of the procedure; Y92.89 Other specified places as the place of occurrence of the external cause
CPT/HCPCS: 80048; 85025; 85610; 85730; 36415; 93005; 33286; A4649; J7030; J3490 ×2; A4215; A4222; A4221; A4663; A4216; A4606; A4223 ×3

== ENCOUNTER → 2024-02-29 | Outpatient (CLI) | payer MEDICARE ==
[2024-02-29 12:20] LABS: CREATININE 0.9 mg/dL (0.5-1.0); MAGNESIUM 1.7 mg/dL (1.80-2.40); POTASSIUM 4.3 mmol/L (3.5-5.1)
== END | disposition home or self-care (01) ==
LOC: LAB 10:17
PROVIDERS: ATTEND Internal Medicine Cardiovascular Disease
DX: I10 Essential (primary) hypertension (principal); E87.1 Hypo-osmolality and hyponatremia
CPT/HCPCS: 36415; 80048; 83735

== ENCOUNTER 2024-04-07 04:32 | Emergency (ER) | payer MEDICARE ==
[~2024-04-07] VITALS: Ht 167.6 cm; Wt 82.6 kg
[2024-04-07] MEDS: ACETAMINOPHEN 500 MG TABLET PO ONE (04:52)
[2024-04-07 06:31] LABS: APPEARANCE,URINE CLOUDY (CLEAR); BILIRUBIN,URINE NEGATIVE (NEGATIVE); COLOR,URINE YELLOW (YELLOW); GLUCOSE, URINE (UA) NEGATIVE (NEGATIVE); KETONES,URINE NEGATIVE (NEGATIVE); LEUKOCYTE ESTERASE ,URINE 25 Leu/uL (NEGATIVE); NITRATE,URINE NEGATIVE (NEGATIVE); OCCULT BLOOD,URINE NEGATIVE (NEGATIVE); PROTEIN,URINE 30 mg/dL (NEGATIVE)
[2024-04-07 06:48] LABS: BASOPHILS # (AUTO) 0.02 K/uL (0.00-0.20); BASOPHILS % (AUTO) 0.1 % (0.0-5.0); EOSINOPHILS # (AUTO) 0.11 K/uL (0.00-0.70); EOSINOPHILS % (AUTO) 0.8 % (0.0-8.0); HEMATOCRIT 40.5 % (36-48); IMMATURE GRANULOCYTE ABSOLUTE 0.13 K/uL (0-1); LYMPHOCYTES # (AUTO) 1.5 K/uL (1.0-4.8); LYMPHOCYTES % (AUTO) 10.6 % (21.0-51.0); MEAN CORPUSCULAR HEMOGLOBIN 31.4 pg (27.0-33.0); MEAN CORPUSCULAR HGB CONC 34.3 g/dL (32.0-36.0); MEAN CORPUSCULAR VOLUME 91.4 fL (79-99); MONOCYTES # (AUTO) 0.7 K/uL (0.1-1.0); NEUTROPHILS # (AUTO) 11.3 K/uL (1.8-7.7); NEUTROPHILS % (AUTO) 82.6 % (40.0-77.0); PLATELET COUNT (AUTO) 247 K/uL (130-400); RED BLOOD CELL COUNT(AUTO) 4.43 MIL/uL (4.00-5.50); RED CELL DISTRIBUTION WIDTH 13.2 % (11.0-15.5); WHITE BLOOD COUNT (AUTO) 13.7 K/uL (4.8-10.8)
[2024-04-07 06:57] LABS: INR 0.96 (0.85-1.15); PROTHROMBIN TIME 11.4 SEC (9.6-11.6)
[2024-04-07 06:58] LABS: PARTIAL THROMBOPLASTIN TIME 25.8 SEC (26.3-35.5)
[2024-04-07 07:08] LABS: BILIRUBIN,TOTAL 0.5 mg/dL (0.2-1.0); POTASSIUM 3.9 mmol/L (3.5-5.1); TOTAL PROTEIN, SERUM 6.6 g/dL (6.0-8.3)
[2024-04-07 07:20] LABS: BACTERIA,URINE FEW /HPF (None Seen); CALCIUM OXALATE CRYSTALS,UR FEW /LPF (None Seen); MUCUS,URINE FEW LPF (None Seen); NON-SQUAMOUS EPITHELIAL CELL 1 /HPF (0-2); OTHER CASTS, URINE 11 /LPF (None Seen); SQUAMOUS EPITHELIAL CELL,UR FEW /HPF (0-2); UNCLASSIFIED CRYSTAL 1 /HPF (None Seen)
[2024-04-07] MEDS: CEFTRIAXONE 1G VIAL IVPB ONE (09:48)
[2024-04-07] MEDS: 0.9%NACL 1000ML 1,000 ML IV SCH (09:49)
[2024-04-07] MEDS: METOPROLOL TARTRATE 1 MG/ML 5ML VIAL IV ONE ×2 (09:49→09:58)
[2024-04-07] MEDS: 0.9%NACL 1000ML 1,000 ML IV ONE (09:58)
[2024-04-07] MEDS: TRAMADOL HCL 50 MG TABLET PO ONE (11:52)
[2024-04-07] MEDS: ACETAMINOPHEN 500 MG TABLET PO PRN (11:52)
[2024-04-07 14:41] VITALS: BP 148/88; PULSE 107; RESP 22; O2SAT 97
== END 2024-04-07 14:42 | disposition short-term general hospital (02) ==
LOC: EDH 04:32
DX: M48.56XA Collapsed vertebra, not elsewhere classified, lumbar region, initial encounter for fracture (principal); I48.20 Chronic atrial fibrillation, unspecified; E87.1 Hypo-osmolality and hyponatremia; E03.9 Hypothyroidism, unspecified; I10 Essential (primary) hypertension; Z90.49 Acquired absence of other specified parts of digestive tract
CPT/HCPCS: 99291; 70450; 96365; 96375; 84484; 80053; 83690; 85025; 85610; 85730; 87088; 83605 ×2; 81001 ×2; 36415; 73521; 72125; 71250; 72131; 74176; 93005; 84145; J3490; J7030; J0696